=== PATIENT | male | born 1955 | race Caucasian/White ===

== ENCOUNTER 2016-07-01 16:25 | Emergency (ER) | payer OTHER ==
[~2016-07-01] VITALS: Ht 170.2 cm; Wt 75.0 kg
[2016-07-01] MEDS ORDERED: LORAZEPAM 2 MG INJ ONE (16:26)
[2016-07-01] MEDS ORDERED: DEXTROSE 50% 50 ML SYRINGE ONE (16:27)
[2016-07-01] MEDS ORDERED: LORAZEPAM 2 MG INJ IV STA (16:32)
[2016-07-01 16:37] VITALS: Ht 170.2 cm; Wt 75.0 kg
[2016-07-01 16:44] LABS: ADD SCAN DIFF NO
[2016-07-01] MEDS ORDERED: SPIR25TA PO (16:44)
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
[2016-07-01] MEDS ORDERED: DEXTROSE 5%-0.45% NACL 500 ML BAG IV ONE (17:00)
--- NOTE | 2016-07-01 17:27 | RADRPT ---
PROCEDURE: XR Chest. CLINICAL INDICATION: Altered level of consciousness TECHNIQUE: Chest AP portable. COMPARISON: No comparison available. FINDINGS: Left-sided dual lead pacemaker. The mediastinal structures are unremarkable. The heart is normal in size and configuration. The pu lmonary vascularity is normal. The lung mccloud are unremarkable. No consolidation is identified. The pleural spaces are unremarkable. The axial skeleton is unremarkable. IMPRESSION: No active intrathoracic disease. RPTAT: HGDB .Man Gauthier MD, MD Date Time Electronically viewed and signed by .Man Gauthier MD, MD on 07/01/2016 17:26 .B/
[2016-07-01 17:45] LABS: ALBUMIN 4.4 g/dl (3.3-4.9); CHLORIDE 97 mmol/L (97-110); INR 1.09; PROTIME 14.1 Sec (12.2-14.2); PT RATIO 1.1; SODIUM 132 mmol/L (135-144)
--- NOTE | 2016-07-01 17:45 | RADRPT ---
PROCEDURE: CT Brain without contrast. CLINICAL INDICATION: Altered Mental Status TECHNIQUE: A CT of the brain was performed on a [employer] 64-slice CT scanner utilizing axial imaging from the skull base through the vertex without IV contrast. Multiplanar reformatted images were made. Images were reviewed on a PACS workstation. The CTDIvol is 44.7 mGy and the DLP is 720 mGycm. COMPARISON: None FINDINGS: There is no intracranial hemorrhage, mass effect, or midline shift. No extra-axial fluid collection is seen. There is diffuse cerebral volume loss with prominence of the cerebral sulci and lateral ve ntricles. White matter periventricular hypodensities particularly in the left parietal region are n onspecific but likely reflect chronic microvascular ischemic change. No loss of bolton-white matter d ifferentiation. The visualized paranasal sinuses and osseous structures are grossly unremarkable. IMPRESSION: 1. No evidence of acute intracranial pathology. If there is clinical concern for acute ischemia, co nsider MRI for further evaluation. 2. Diffuse cerebral volume loss. 3. Periventricular white matter hypodensities are nonspecific but likely reflect chronic microvascu lar ischemic change. Physician Rita Date Time Electronically viewed and signed by Physician Rita on 07/01/2016 17:44 ML/
[2016-07-01 17:46] LABS: POTASSIUM 3.4 mmol/L (3.5-5.1)
[2016-07-01 17:48] LABS: ALBUMIN/GLOBULIN RATIO 1.33; ALKALINE PHOSPHATASE 59 IU/L (42-121); ANION GAP 19 (8-16); ASPARTATE AMINO TRANSFERASE 37 IU/L (15-46); BILIRUBIN,INDIRECT 0.4 mg/dl (0-1.1); BILIRUBIN,TOTAL 0.4 mg/dl (0.2-1.3); BLOOD UREA NITROGEN 11 mg/dl (7-20); CARBON DIOXIDE 19 mmol/L (21-31); CREATININE 0.84 mg/dl (0.61-1.24); GLUCOSE 138 mg/dl (70-220); TOTAL PROTEIN 7.7 g/dl (6.1-8.1)
[2016-07-01 17:49] LABS: ALANINE AMINOTRANSFERASE 36 IU/L (13-69); CALCIUM 9.1 mg/dl (8.4-10.2)
[2016-07-01 17:52] LABS: ETHANOL < 10.0 mg/dl
[2016-07-01 17:53] LABS: ABNORMAL IP MESSAGE 1; HEMATOCRIT 46.3 % (42.0-52.0); HEMOGLOBIN 14.9 g/dl (14.0-18.0); MEAN CORPUSCULAR HGB CONC 32.2 g/dl (32.0-37.0); MEAN CORPUSCULAR VOLUME 93.3 fl (82.0-101.0); MEAN PLATELET VOLUME 9.6 fl (7.4-10.4); PLATELET COUNT 330 10^3/UL (140-415); RED BLOOD COUNT 4.96 10^6/ul (4.70-6.10); RED CELL DISTRIBUTION WIDTH 12.8 % (11.5-14.5); WHITE BLOOD COUNT 16.8 10^3/ul (4.8-10.8)
[2016-07-01 18:02] LABS: EOSINOPHILS # 0.2 10^3/ul (0.0-0.5); LYMPHOCYTES # 7.2 10^3/ul (0.8-2.9); MONOCYTE # 1.8 10^3/ul (0.3-0.9); NEUTROPHIL # 7.6 10^3/ul (1.6-7.5)
[2016-07-01 18:03] VITALS: TEMP 98
[2016-07-01 18:03] LABS: TROPONIN-I < 0.012 ng/ml (0.00-0.12)
[2016-07-01 20:17] LABS: ADD UMIC YES; URINE BILIRUBIN (Dip) NEGATIVE (NEGATIVE); URINE BLOOD (Dip) 1+ (NEGATIVE); URINE COLOR LT. YELLOW (YELLOW); URINE GLUCOSE (Dip) NEGATIVE (NEGATIVE); URINE KETONES (Dip) NEGATIVE (NEGATIVE); URINE LEUKOCYTE ESTERASE (Dip) NEGATIVE (NEGATIVE); URINE NITRITE (Dip) NEGATIVE (NEGATIVE); URINE TOTAL PROTEIN (Dip) 2+ (NEGATIVE); URINE UROBILINOGEN (Dip) 0.2 E.U./dL (0.1-1.0)
[2016-07-01 20:31] LABS: SQUAMOUS EPITHELIAL CELL,UR RARE; URINE RBCS 0-2 /HPF (0)
[2016-07-01 21:20] LABS: BARBITURATES NEGATIVE (NEGATIVE); BENZODIAZEPINES NEGATIVE (NEGATIVE); CANNABINOIDS NEGATIVE (NEGATIVE); COCAINE NEGATIVE (NEGATIVE); OPIATES NEGATIVE (NEGATIVE)
[2016-07-01 22:13] VITALS: BP 127/75; PULSE 65; RESP 18
== END 2016-07-01 22:00 | disposition home or self-care (01) ==
LOC: E/R 16:25
DX: E16.2 Hypoglycemia, unspecified (principal); R56.9 Unspecified convulsions; R41.82 Altered mental status, unspecified
CPT/HCPCS: 70450; 71010; 80053; 80306; 80307; 81001; 82550; 82553; 82962; 84484; 85025; 85610; 93005; J2060; Z7610; 81003; 96374

== ENCOUNTER 2017-02-03 05:44 | Day surgery (SDC) | payer MEDICARE, OTHER ==
[2017-02-03] VITALS (10 sets, daily range): BP systolic 134–153; BP diastolic 70–80; PULSE 60–65; RESP 9–20; Ht 165.1 cm; Wt 70.0 kg
[~2017-02-03] VITALS: Ht 165.1 cm; Wt 70.0 kg
[~2017-02-03 05:44] MED LIST: SPIR25TA PO
[2017-02-03] MEDS ORDERED: SOD CHLORIDE 0.9% 1,000 ML IV SCH (06:00)
[2017-02-03] MEDS ORDERED: MOXIFLOXACIN 0.5% 3 ML OPH OPER SCH (06:00)
[2017-02-03] MEDS ORDERED: BROMFENAC SODIUM 1.7 ML OPH DROP OPER SCH (06:00)
[2017-02-03] MEDS ORDERED: CYCLOPENTOLATE/PHENYLEPH 2 ML OPH OPER SCH (06:00)
[2017-02-03] MEDS ORDERED: TROPICAMIDE 1% 2 ML OPH OPER SCH (06:00)
--- NOTE | 2017-02-03 06:22 | PREOPHP ---
DATE OF ADMISSION: 02/03/2017 HISTORY OF PRESENT ILLNESS: This 61-year-old patient is admitted for elective cataract surgery of t he right eye. The patient has had decreased vision in both eyes progressive over the past year, and 2 years ago underwent upper lid blepharoplasty for both eyes. The patient's systemic history is po sitive for a 5-year history of insulin-dependent diabetes mellitus, as well as diagnosis of systemic hypertension. The patient had a pacemaker placed in 2014. CURRENT MEDICATIONS: Include: 1. Insulin. 2. Carvedilol. 3. Metformin. 4. Furosemide. ALLERGIES: PENICILLIN. PHYSICAL EXAMINATION: The visual acuity with best correction is 20/80 in the right eye and 20/40 in the left eye. Slit lamp examination reveals nuclear sclerotic and posterior subcapsular cataract i n the right eye. Applanation tonometry is 13 mmHg. Examination of the retina is within normal limi ts without evidence of any diabetic retinopathy. DIAGNOSIS: Cataract, right eye. PLAN: Cataract extraction with lens implant, right eye. The risks and alternatives to the surgery have been discussed with the patient and patient has opted to proceed with surgery in hopes of jacquelyn staples improved vision, leading to greater ability to perform activities of daily living. Dictated By: YANA PAN/MARA Conf#: [id number] DID#: [id number]
[2017-02-03] MEDS ORDERED: CARBACHOL 0.01% 1.5 ML OPH INJ ONE (06:42)
[2017-02-03] MEDS ORDERED: LIDOCAINE 4% (MPF) 5 ML INJ ONE (06:42)
[2017-02-03] MEDS ORDERED: GENTAMICIN 80 MG INJ ONE (06:43)
[2017-02-03] MEDS ORDERED: EPINEPHrine 1 MG INJ ONE (06:43)
[2017-02-03] MEDS ORDERED: DEXAMETHASONE 4 MG/ML 1 ML INJ ONE (06:43)
[2017-02-03] MEDS ORDERED: ASPI-664 PO (07:11)
[2017-02-03] MEDS ORDERED: CARV25TA79 PO (07:13)
[2017-02-03] MEDS ORDERED: ATOR80TA75 PO (07:14)
[2017-02-03] MEDS ORDERED: FURO20TA3 PO (07:14)
[2017-02-03] MEDS ORDERED: LOSA100T7 PO (07:14)
[2017-02-03] MEDS ORDERED: METF1000 PO (07:15)
[2017-02-03] MEDS ORDERED: OMEG-135 PO (07:15)
[2017-02-03] MEDS ORDERED: CHOL100062 PO (07:16)
[2017-02-03] MEDS ORDERED: LANT3I SC (07:17)
[2017-02-03] MEDS ORDERED: TROPICAMIDE 1% 3 ML OPH OPER SCH (07:30)
[2017-02-03] MEDS ORDERED: DEXAMETHASONE 4 MG/ML 1 ML INJ INJ ONE (08:22)
[2017-02-03] MEDS ORDERED: GENTAMICIN 80 MG INJ INJ ONE (08:22)
[2017-02-03] MEDS ORDERED: CARBACHOL 0.01% 1.5 ML OPH INJ IO ONE (08:22)
[2017-02-03] MEDS ORDERED: LABETALOL HCL 20MG INJ IV PRN (08:30)
[2017-02-03] MEDS ORDERED: DIPHENHYDRAMINE 50 MG INJ IV PRN (08:30)
[2017-02-03] MEDS ORDERED: MEPERIDINE 25 MG INJ IV PRN (08:30)
[2017-02-03] MEDS ORDERED: MIDAZOLAM 1 MG/ML 2 ML INJ IV PRN (08:30)
[2017-02-03] MEDS ORDERED: EPHEDrine SULFATE 50 MG/5 ML SYG IV PRN (08:30)
[2017-02-03] MEDS ORDERED: OXYCODONE/ACETAMINOPHEN (5/325) TAB PO PRN ×2 (08:30)
[2017-02-03] MEDS ORDERED: FENTAnyl 50 MCG/ML VIAL IV PRN ×3 (08:30)
[2017-02-03] MEDS ORDERED: ONDANSETRON 4 MG INJ IV PRN (08:30)
[2017-02-03] MEDS ORDERED: METOCLOPRAMIDE 10 MG INJ IV PRN (08:30)
[2017-02-03] MEDS ORDERED: hydrALAzine 20 MG INJ IV PRN (08:30)
--- NOTE | 2017-02-03 09:13 | HPN ---
Date/Time of Note Date/Time of Note DATE: 02/03/17 TIME: 09:13 Interval H&P Admission Note Pt. seen H&P reviewed: No system changes YANA OSORIO MD Feb 03, 2017 09:13
--- NOTE | 2017-02-03 09:14 | SIPON ---
Date/Time of Note Date/Time of Note DATE: 02/03/17 TIME: 09:13 Operative Report Preoperative Diagnosis cataract od Postoperative Diagnosis same Operation/Procedure Performed cataract surgery od Surgeon see signature line farm assistant none Anesthesia: MAC Estimated blood loss: none Transfusion Required none Specimen none Grafts/Implants posterior chamber lens implant od Complications none YANA OSORIO MD Feb 03, 2017 09:14
--- NOTE | 2017-02-03 09:14 | SIPON ---
Date/Time of Note Date/Time of Note DATE: 02/03/17 TIME: 09:13 Operative Report Preoperative Diagnosis cataract od Postoperative Diagnosis same Operation/Procedure Performed cataract surgery od Surgeon see signature line photo studio assistant none Anesthesia: MAC Estimated blood loss: none Transfusion Required none Specimen none Grafts/Implants posterior chamber lens implant od Complications none YANA OSORIO MD Feb 03, 2017 09:14
--- NOTE | 2017-02-03 09:14 | SIPON ---
Date/Time of Note Date/Time of Note DATE: 02/03/17 TIME: 09:13 Operative Report Preoperative Diagnosis cataract od Postoperative Diagnosis same Operation/Procedure Performed cataract surgery od Surgeon see signature line public services assistant none Anesthesia: MAC Estimated blood loss: none Transfusion Required none Specimen none Grafts/Implants posterior chamber lens implant od Complications none YANA OSORIO MD Feb 03, 2017 09:14
[2017-02-03] MEDS ORDERED: PROPOFOL 20 ML ONE (09:29)
--- NOTE | 2017-02-03 09:34 | OPR ---
DATE OF OPERATION: 02/03/2017 PREOPERATIVE DIAGNOSIS: Cataract, right eye. POSTOPERATIVE DIAGNOSIS: Cataract, right eye. OPERATION PERFORMED: Cataract extraction with lens implant, right eye. SURGEON: Yana Huff MD ANESTHESIOLOGIST: Dr. Tiwari ANESTHESIA: Local standby. PROCEDURE: The patient was brought to the operating room and placed on the table with an IV in plac e and the patient attached to an playground attendant. Oxygen was given via face mask. After some intravenous sedation was administered, local anesthesia was given using Xylocaine 2% with epinephrine, mixed with Marcaine 0.5%. This was given in a lid block and retrobulbar injection. The patient was then prepped and draped in the usual sterile manner. A wire lid speculum was inserted between the lids of the right eye. A Superblade was used to enter t he anterior chamber at the corneoscleral limbus at the 10:30 o'clock position. A separate incision w as made using a 3.0-mm keratome which entered the corneoscleral junction at the 12 o'clock position. Through this 3-mm opening, an irrigating cystotome was introduced into the anterior chamber. The ch asmita was filled with Provisc and an anterior capsulotomy was performed. Balanced salt solution was then used for hydrodissection of the lens. A phacoemulsification handpiece was then brought into th e field and introduced into the anterior chamber. The lens nucleus was emulsified using a deep groov e and cracking the nucleus into quadrants. Following this, each quadrant was aspirated and emulsifie d at the pupillary margin. After this was completed, the irrigation/aspiration handpiece was brought to the field, introduced i nto the posterior chamber, and the lens cortical material was removed. When this was completed, yoli tional Provisc was injected into the anterior and posterior chambers. The 3-mm opening had its internal lips enlarged, and then the posterior chamber intraocular lens jonas suring 19.5 diopters ([employer] Model [id number]) was then injected into the posterior chamber using the lens injector system. After the leading haptic was introduced into the capsular b ag and the lens optic was present in the center of the eye, the injector was removed and the trailin g haptic was grasped with non-toothed forceps and introduced into the capsular fold superiorly. A Si nskey hook was then used to rotate the intraocular lens so that the lips were oriented in the horizo ntal meridian. One 10-0 nylon suture was placed across the wound. Prior to tying, the irrigation/aspiration handpiece was reintroduced into the anterior chamber to re move the Viscoat. Miochol was instilled to constrict the pupil, and then the 10-0 nylon suture was t ied. The ends were cut short and then the knot was buried. Then, 0.5 mL of dexamethasone and 0.5 mL of gentamicin were injected into the sub-[place] space in the inferior fornix. Ciloxan drops were then placed on the surface of the eye. The speculum was remove d and a patch was applied. The patient then left the operating room in satisfactory condition. Dictated By: YANA PAN/MARA Conf#: [id number] DID#: [id number]
== END 2017-02-03 11:07 | disposition home or self-care (01) ==
LOC: SDS 05:44
PROVIDERS: ATTEND Ophthalmology
DX: H25.11 Age-related nuclear cataract, right eye (principal); I10 Essential (primary) hypertension; E11.9 Type 2 diabetes mellitus without complications
CPT/HCPCS: 66984; 82962; J0171; J1100; J1580; V2632

== ENCOUNTER 2017-04-28 05:53 | Day surgery (SDC) | END 2017-04-28 09:50 | disposition home or self-care (01) ==